=== PATIENT | female | born 1990 | race Caucasian/White ===

== ENCOUNTER 2017-01-25 03:34 | Inpatient (IN) | payer OTHER, SELFPAY ==
[2017-01-25 04:22] LABS: #Lymphocytes 2.4 thou/uL (1.20-3.40); #Monocytes 0.6 thou/uL (0.11-0.59); #Neutrophils 3.7 thou/uL (1.40-6.50); %Basophils 0.5 % (0.0-1.0); %Eosinophils 0.4 % (0.0-10.0); %Monocytes 8.5 % (0.0-10.0); Hematocrit 39.9 % (36.0-47.0); Mean Platelet Volume 7.3 fL (7.4-10.4); Red Blood Cell (RBC) Count 4.26 mill/uL (4.20-5.40); White Blood Cell (WBC) Count 6.8 thou/uL (4.8-10.8)
[2017-01-25 04:40] LABS: ALT (SGPT) 10 U/L (8-55); AST (SGOT) 17 U/L (5-34); Alkaline Phosphatase 44 U/L (40-150); Anion Gap 13 mmol/L (10-20); BUN (Urea Nitrogen) 20 mg/dL (7.0-18.7); Bilirubin, Total 0.7 mg/dL (0.2-1.2); Calc. Creatinine Clearance 0 mL/min (70-130); Calcium 9.5 mg/dL (7.8-10.44); Carbon Dioxide 26 mmol/L (22-29); Chloride 104 mmol/L (98-107); Estimated GFR-MDRD 74; Protein, Total 7.7 g/dL (6.0-8.3)
[2017-01-25 04:56] LABS: Acetaminophen Less than 6.0 mcg/mL (10.0-30.0); Magnesium 2.2 mg/dL (1.6-2.6); Phosphorus 3.6 mg/dL (2.3-4.7); Salicylate Less than 8.0 mg/dL (15.0-30.0)
[2017-01-25] MEDS ORDERED: Sodium Bicarbonate 150 MEQ in Dextrose 5% in Water 1,000 ML IV SCH ×4 (05:15→06:30)
[2017-01-25] MEDS ORDERED: Calcium Gluc 4.6 MEQ/10 ML (100 MG/ML) ONE (05:44)
[2017-01-25] MEDS ORDERED: Magnesium 2 GM/NS 0.9% 50 ML 2 GM in Premix Bag 1 BAG IVPB SCH (05:45)
[2017-01-25] MEDS ORDERED: Calcium Gluconate 13.8 MEQ in Sodium Chloride 0.9% 100 ML IVPB SCH (06:00)
--- NOTE | 2017-01-25 06:08 | ER ---
DATE OF SERVICE: 01/25/2017 Please refer to the patient's electronic medical record for further details of her visit. In summary, the patient presents after ingesting a significant amount of Seroquel intentionally. She was mildly tachycardic on arrival, with a normal QRS on her EKG, though with a mildly widened QTC. Poison Center was contacted and recommended observation in the ICU. Serial EKGs were performed, with widening of the QT interval noted. Because of this, a bicarbonate drip was initiated, and the patie nt was given calcium and magnesium as well. She admits to suicidal ideation and intent for self-harm . She denies any other method or attempt of self-harm, though she has attempted other methods in the past. She is in no respiratory distress. Charcoal was held given the concern for her somnolent sta te and the risk of aspiration and vomiting. She is in critical condition at time of admission.
--- NOTE | 2017-01-25 06:21 | PDOC.EVN ---
Event Note - Event Note Event Note: [id number] H&P Dictated 1. Drug overdose 2. sucide attempt 3. Hypokalemia PLAn; SEE ORDERS
[2017-01-25] MEDS ORDERED: Acetaminophen 325 MG TAB PO PRN (06:22)
[2017-01-25 06:30] LABS: Oxyhemoglobin 96.6 % (94.0-97.0); Sodium 141 mmol/L (135-148)
[2017-01-25 06:31] LABS: Mode RA; Modified Allen's Test POSITIVE; Vent NO
[2017-01-25] MEDS ORDERED: Potassium Chloride 40 MEQ in Sodium Chloride 0.9% 250 ML 250 ML IVPB SCH ×5 (07:00→21:00)
[2017-01-25 07:55] VITALS: BMI 18.8
[2017-01-25 08:21] LABS: Anion Gap 8 mmol/L (10-20); BUN (Urea Nitrogen) 17 mg/dL (7.0-18.7); Calc. Creatinine Clearance 82 mL/min (70-130); Calcium 9.4 mg/dL (7.8-10.44); Carbon Dioxide 29 mmol/L (22-29); Chloride 106 mmol/L (98-107); Estimated GFR-MDRD 82
[2017-01-25] MEDS: Heparin 5,000 UNITS/ML VIAL SC SCH ×3 (09:04→19:58)
--- NOTE | 2017-01-25 11:27 | HP ---
DATE OF ADMISSION: 01/25/2017 CHIEF COMPLAINT: Drug overdose. HISTORY OF PRESENT ILLNESS: The patient is a 26 years old female with a past medical history of depr ession, post-traumatic stress disorder, history of prior suicide attempt per records, Wilms' tumor, c hronic back pain and neck pain, now came to the ER, because of the drug overdose. The patient said s he took 200 mg of Seroquel or 15 tablets for suicide attempt. After taking the tablets patient told her boyfriend and patient was brought to the ER. The patient is currently lethargic, but denies any chest pain, denies any nausea, denies any vomiting. The patient is kept dozing off in the ER, so we will able to get minimal history. PAST MEDICAL HISTORY: As per HPI. PAST SURGICAL HISTORY: Status post kidney resection, secondary to Wilms' tumor. FAMILY HISTORY: Not able to obtain, as the patient is lethargic. SOCIAL HISTORY: No smoking, but denies any alcohol or drugs. Positive for cannabis use per history. MEDICATIONS: Reviewed. ALLERGIES: Reviewed. REVIEW OF SYSTEMS: Constitutional: Denies any fever. Denies any chills. Eyes: No vision problems . Neck: Denies any neck pain. Cardiovascular: Denies any chest pain. Respiratory System: Denies any cough. Denies sputum production. Gastrointestinal: Denies nausea, vomiting. Cranial Nervous System: Positive for lethargy. Psychiatric: Positive for depression. Other review of systems are r eviewed, patient kept saying yes or no. PHYSICAL EXAMINATION: CONSTITUTIONAL/VITAL SIGNS: At the time of H and P performed, blood pressure 109/60, heart rate 130s to 140s, pulse ox 98%. GENERAL: The patient appears lethargic. HEENT: Anterior nares patent. Nose normal. Teeth intact. Tongue is moist. NECK: Supple, no JVD. CARDIOVASCULAR SYSTEM: S1, S2 present, tachycardic. No murmurs, no rubs, no gallops. RESPIRATORY SYSTEM: No wheezing, no rhonchi. Breath sounds bilaterally. CRANIAL NERVE SYSTEM: Awake, lethargic, but arousable, follows commands. PSYCHIATRIC: Mood calm at this time. INTEGUMENTARY: No rashes seen. LABORATORY DATA: At the time of H and P performed sodium 140, potassium 3.2, chloride 104, CO2 of 26 , BUN of 20, creatinine 0.91. Toxicology positive for TCAs; toxicology negative for salicylates. Wh ite count 8.8, hemoglobin 13.6, platelet count 238. EKG: Positive for QT prolongation. ASSESSMENT AND PLAN: The patient is a 26 years old female, 1. Intentional drug overdose plus suicide attempt. ED physician did speak to the Poison Control. T he patient did not get charcoal in the ER, as the patient is lethargic and the risk of aspiration was high. So, patient did not get charcoal. We will go ahead and admit patient to the ICU, planned to give 1 gram of calcium gluconate due to prolonged QT interval. We will go ahead and start patient on some bicarbonate drip as recommended by the Poison Control. We will monitor the patient closely. 2. Tachycardia appears sinus, monitor closely. Check mag level. We will replace potassium. 3. History of depression and posttraumatic stress disorder. Planned to place 24-hour sitter. We wi ll consult Psych once we get the results. We will consult pulmonary critical care team also to evalu ate the patient. 4. Hypokalemia. Replace potassium. The case was discussed in detail with the patient and ED nurses.
[2017-01-25 13:01] LABS: Anion Gap 12 mmol/L (10-20); BUN (Urea Nitrogen) 15 mg/dL (7.0-18.7); Calc. Creatinine Clearance 83 mL/min (70-130); Calcium 8.9 mg/dL (7.8-10.44); Carbon Dioxide 27 mmol/L (22-29); Chloride 108 mmol/L (98-107); Estimated GFR-MDRD 84
[2017-01-25 15:27] LABS: Anion Gap 10 mmol/L (10-20); BUN (Urea Nitrogen) 13 mg/dL (7.0-18.7); Calc. Creatinine Clearance 84 mL/min (70-130); Calcium 8.7 mg/dL (7.8-10.44); Carbon Dioxide 27 mmol/L (22-29); Chloride 109 mmol/L (98-107); Estimated GFR-MDRD 85
--- NOTE | 2017-01-25 15:33 | CON ---
DATE OF CONSULTATION: 01/25/2017 REASON FOR CONSULTATION: Prolonged QT after recent overdose. HISTORY OF PRESENT ILLNESS: Ms. Perez is an unfortunate 26-year-old woman, who has had multiple john cide attempts in the past. She has been on Effexor, Topamax, and Seroquel. Her QT interval was prol onged. During my interview, she has been somnolent and difficult to arouse. PAST MEDICAL HISTORY: Posttraumatic stress disorder, depression, Wilms' tumor, chronic back pain. PAST SURGICAL HISTORY: Kidney resection. SOCIAL HISTORY: No current tobacco or alcohol use except for cannabis use. ALLERGIES: None. REVIEW OF SYSTEMS: Unobtainable. She is currently difficult to arouse. PHYSICAL EXAMINATION: GENERAL: Patient is a pleasant female who is in no acute distress. The patient appears her stated a ge. VITAL SIGNS: Blood pressure 107/66, pulse 99, temperature afebrile. NEUROLOGIC: The patient is alert and oriented times 3 with no focal neurologic deficits. HEENT: Sclerae without icterus. Mouth has moist mucous membranes with normal pallor. NECK: No JVD. Carotid upstroke brisk. No bruits bilaterally. LUNGS: Clear to auscultation with unlabored respirations. BACK: No scoliosis or kyphosis. CARDIAC: Regular rate and rhythm with normal S1 and S2. No S3 or S4 noted. No significant rubs, mu rmurs, thrills, or gallops noted throughout the precordium. PMI is not displaced. There is no laurie ternal heave. ABDOMEN: Soft, nontender, nondistended. No peritoneal signs present. No hepatosplenomegaly. No ab normal striae. EXTREMITIES: A 2+ femoral and 2+ dorsalis pedis pulses. No cyanosis, clubbing, or edema. SKIN: No gross abnormalities. PERTINENT LABORATORY DATA: Hemoglobin 13.6. Creatinine 0.82. EKG: Normal sinus rhythm with prolonged QT. IMPRESSION: 1. Prolonged QT. 2. Recent suicide attempt. RECOMMENDATIONS: Ms. Kenney prolonged QT is likely related to Seroquel. We will need to have watc h on the Seroquel for her QT to return to normal. We will continue to monitor for arrhythmias. We w ould recommend keeping her potassium above 3.5. Otherwise, I have no further recommendations.
--- NOTE | 2017-01-25 17:51 | PDOC.EVN ---
Event Note - Event Note Event Note: pt seen and evaluated agree with current plan spoke to dr fu and will f/u his rec's will d/c consult for now and reconsult prn
[2017-01-25 19:57] LABS: Anion Gap 10 mmol/L (10-20); BUN (Urea Nitrogen) 11 mg/dL (7.0-18.7); Calc. Creatinine Clearance 84 mL/min (70-130); Calcium 8.7 mg/dL (7.8-10.44); Carbon Dioxide 28 mmol/L (22-29); Chloride 108 mmol/L (98-107); Estimated GFR-MDRD 85
[2017-01-25] MEDS: Sodium Bicarbonate 150 MEQ in Dextrose 5% in Water 1,000 ML IV SCH ×2 (19:59)
[2017-01-25] MEDS ORDERED: FLU VACC QS2017-18 36 mo. & older 0.5 ML SYRINGE IM ONE (21:00)
--- NOTE | 2017-01-25 23:38 | CON ---
DATE OF CONSULTATION: 01/25/2017 HISTORY OF PRESENT ILLNESS: Ms. Perez is a 26-year-old female, she had issues with depression and s uicide attempts in the past. She presented with after she took a large dose of Seroquel and was admitted to the ICU, eliceo donato I was consulted because of the presence in the ICU. PAST MEDICAL HISTORY: Remarkable for history of Wilms tumor, depression and nephrectomy. SOCIAL HISTORY: She is nonsmoker, nondrinker. ALLERGIES: She has no drug allergies. REVIEW OF SYSTEMS: Not accurately obtainable. She is somnolent, but wakes up. She quickly goes ba ck to sleep. She is adequately protecting airway. PHYSICAL EXAMINATION: VITAL SIGNS: Blood pressure 106/64, heart rate 94, respiratory rate 18, oximetry is 99. NECK: Supple. LUNGS: Clear. HEART: Regular rhythm, no S3. ABDOMEN: Soft. EXTREMITIES: Without asymmetry. LABORATORY DATA: Drug screen is only salicylate, acetaminophen and alcohol screen. No other drugs w ere tested for, electrolytes were unremarkable. A pH 7.44, CO2 38, pO2 117 at 06:25 this morning, wh ite count 6.8, hemoglobin 13.6, platelets 238. 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 These are healed with fairly significant scars. IMPRESSION: Chronic depression with suicidal attempt versus gesture. Cardiology has been consulted for her EKG abnormalities, but I suspect as the medicine wears off, she will gradually improve. She has bicarb in her IV fluids. She appears to be adequately protecting her airway.
[2017-01-25 23:42] LABS: Anion Gap 10 mmol/L (10-20); BUN (Urea Nitrogen) 9 mg/dL (7.0-18.7); Calc. Creatinine Clearance 86 mL/min (70-130); Calcium 8.4 mg/dL (7.8-10.44); Carbon Dioxide 29 mmol/L (22-29); Chloride 109 mmol/L (98-107); Estimated GFR-MDRD 86
[2017-01-26] MEDS: Sodium Bicarbonate 150 MEQ in Dextrose 5% in Water 1,000 ML IV SCH ×2 (04:55)
[2017-01-26 06:10] LABS: Anion Gap 7 mmol/L (10-20); BUN (Urea Nitrogen) 6 mg/dL (7.0-18.7); Calc. Creatinine Clearance 84 mL/min (70-130); Calcium 8.4 mg/dL (7.8-10.44); Carbon Dioxide 31 mmol/L (22-29); Chloride 109 mmol/L (98-107); Estimated GFR-MDRD 85
[2017-01-26 08:19] LABS: Hematocrit 32.4 % (36.0-47.0); Mean Platelet Volume 7.3 fL (7.4-10.4); White Blood Cell (WBC) Count 4.9 thou/uL (4.8-10.8)
[2017-01-26 08:27] LABS: Neutrophil 46 % (42-75)
[2017-01-26] MEDS: Sodium Chloride 0.45% 1,000 ML IV SCH ×2 (08:50→23:20)
[2017-01-26] MEDS: Enoxaparin Sodium 40 MG/0.4 ML SYRINGE SC SCH (09:30)
--- NOTE | 2017-01-26 13:36 | PRG ---
DATE OF SERVICE: 01/26/2017 SUBJECTIVE: This patient is doing a little much better today. She is more alert. She is tolerating sips of water. We will start her on diet. No fever, no chills. QT interval has come back to sharyn l and does not complain of anything. She is a little drowsy, but answers simple questions appropriat lucia. PHYSICAL EXAMINATION: VITAL SIGNS: Temperature is afebrile, blood pressure is 97/58, breathing comfortably on room air wit h a pulse of 75. GENERAL: Patient is lying in bed in no apparent distress. HEENT: Atraumatic, normocephalic. Pupils equally round, react to light. Extraocular movements inta ct. Mucous membranes moist. NECK: Supple. No JVD. CHEST: Breath sounds heard. No rales or rhonchi. HEART: S1, S2 normal. No murmurs or gallops. ABDOMEN: Soft. EXTREMITIES: No cyanosis, clubbing or edema. Distal pulses present. NEUROLOGIC: Little lethargic. Details examination not possible. SKIN: No gross abnormalities. LABORATORY DATA: The patient's potassium was 3.2, sodium is 144, creatinine is 0.81. WBC count is 4 .9, hemoglobin is 10.9. ASSESSMENT AND PLAN: 1. Suicidal attempt with Seroquel, had initially prolonged QT interval, right now has come back to n ormal. We will follow cardiology plan. We will monitor the patient this hospital stay and do the ne ed for. We will get one-on-one sitter and we will follow the recommendations of Cardiology and inten sivist. 2. Hypokalemia. We will replace that. 3. Anemia. We will monitor that in this hospital stay. 4. History of depression and posttraumatic stress disorder. I will work with case management for po ssible inpatient psych evaluation by [facility]. 5. Tachycardia, has resolved. I will monitor the labs and work with [facility] in further taking care of the patient. The patient will be downgraded today. 6. Sequential compression devices for deep venous thrombosis prophylaxis. I will work with the [facility] in further caring for the patient.
--- NOTE | 2017-01-26 13:52 | PRG ---
DATE OF SERVICE: 01/26/2017 SUBJECTIVE: Ms. Perez continues to be somnolent, but is a little bit more awake today. No current complaints. Her QT appears to have narrowed to normal on the telemetry monitoring. OBJECTIVE: VITAL SIGNS: Blood pressure 111/72, pulse 75, temperature afebrile. LUNGS: Clear to auscultation. HEART: Regular rate and rhythm. ABDOMEN: Soft, nontender, nondistended. EXTREMITIES: No edema. LABORATORY DATA: Hemoglobin 10.9. Potassium 3.2. EKG pending. IMPRESSION: Prolonged QT after recent suicide attempt. RECOMMENDATIONS: Ms. Perez's QT interval appears within normal limits on a recent quality assurance monitor body ing. We will get an EKG to confirm. If confirmed, we will then sign off. Otherwise, I have no furt her recommendations.
--- NOTE | 2017-01-26 14:34 | PRG ---
DATE OF SERVICE: 01/26/2017 SUBJECTIVE: Ms. Perez awakens easily. She is in no distress. She declines to talk about the issues that led to her overdose. OBJECTIVE: VITAL SIGNS: Heart rate 76, QT interval is back to normal. Blood pressure is 110/64, respiratory rate is 13 and oximetry is 99. LUNGS: Clear. HEART: Regular rhythm. ABDOMEN: Soft. LABORATORY DATA: Bicarb is up to 31, potassium is 3.2. Electrolytes were otherwise normal. IMPRESSION: 1. Seroquel overdose. 1. Transient prolonged QT secondary to Seroquel. 2. Borderline hypokalemia. This can be replaced enterally though it i not really a clinical issue. 3. History of suicide attempts of another suicide attempt or gesture. She needs an [facility] evaluation. In my opinion, she is medically stable to move to a medical bed. Her bicarbonate should be discontinued. Half normal saline can be administered. She really does not have any reason to be on subQ heparin 3 times a day. One dose of Lovenox a day should be adequate. Critical care time 40 min. MTDD
[2017-01-26] MEDS: Potassium Chloride 20 MEQ TAB PO SCH (18:36)
[2017-01-27 04:55] LABS: Anion Gap 10 mmol/L (10-20); BUN (Urea Nitrogen) 6 mg/dL (7.0-18.7); BUN/Creatinine Ratio 7.89; Calc. Creatinine Clearance 90 mL/min (70-130); Calcium 8.6 mg/dL (7.8-10.44); Carbon Dioxide 26 mmol/L (22-29); Chloride 109 mmol/L (98-107); Estimated GFR-MDRD Greater than 90; Phosphorus 3.8 mg/dL (2.3-4.7)
[2017-01-27] MEDS: Enoxaparin Sodium 40 MG/0.4 ML SYRINGE SC SCH (10:19)
[2017-01-27] MEDS: Potassium Chloride 20 MEQ TAB PO SCH ×2 (10:19→16:00)
[2017-01-27] MEDS: Sodium Chloride 0.45% 1,000 ML IV SCH (10:36)
--- NOTE | 2017-01-27 13:04 | PDOC.PN ---
- Subjective Encounter Start Date: 01/27/17 Encounter Start Time: 09:30 Subjective: awake, no chest pain/palp/sob -: is eating better -: still feels depressed - Objective MAR Reviewed: Yes Vital Signs & Weight: Vital Signs (12 hours) Temp Pulse Resp BP Pulse Ox 01/27/17 12:07 97.7 F 75 18 111/72 100 01/27/17 08:33 98.4 F 79 18 110/67 99 01/27/17 08:00 98.8 F 74 16 01/27/17 04:00 98.8 F 74 16 98/57 L 100 Weight Admit Weight 113 lb 1.554 oz Weight 113 lb 1.554 oz Most Recent Monitor Data Heart Rate from ECG 95 NIBP 109/64 NIBP BP-Mean 78 Respiration from ECG 17 SpO2 98 I&O: 01/26/17 01/27/17 01/28/17 06:59 06:59 06:59 Intake Total 4049 3604 Output Total 2140 1435 Balance 1909 2169 Result Diagrams: 01/26/17 05:19 01/27/17 03:31 Phys Exam - Physical Examination HEENT: PERRLA, moist MMs Neck: no JVD, supple Respiratory: no wheezing, no rales Cardiovascular: RRR, no significant murmur Gastrointestinal: soft, non-tender, no distention, positive bowel sounds Musculoskeletal: no edema, pulses present Neurological: non-focal, moves all 4 limbs Psychiatric: A&O x 3 Dx/Plan (1) OD (overdose of drug) Code(s): T50.901A - POISONING BY UNSP DRUG/MEDS/BIOL SUBST, ACCIDENTAL, INIT Status: Acute (2) Anxiety and depression Code(s): F41.9 - ANXIETY DISORDER, UNSPECIFIED; F32.9 - MAJOR DEPRESSIVE DISORDER, SINGLE EPISODE, UNSPECIFIED Status: Chronic (3) Chronic pain Code(s): G89.29 - OTHER CHRONIC PAIN Status: Chronic - Plan pt says she has done this OD before as well -: is slowly stabilizing medically -: [facility] consultation in am, will likely need in psychiatric facility hosp -: continue 1:1 sitter until MR clears her in am * . Review of Systems - Medications/Allergies Allergies/Adverse Reactions: Allergies Allergy/AdvReac Type Severity Reaction Status Date / Time amoxicillin Allergy Verified 12/22/13 07:33 Penicillins Allergy Verified 12/22/13 07:02 Medications: Current Medications Acetaminophen (Tylenol) 650 mg PO Q4H PRN PRN Reason: Headache/Fever or Pain Enoxaparin Sodium (Lovenox) 40 mg SC 0900 [facility] Last Admin: 01/27/17 10:19 Dose: Not Given Sodium Chloride (1/2 Normal Saline) 1,000 mls @ 75 mls/hr IV .[id number] [facility] Last Admin: 01/27/17 10:36 Dose: 1,000 mls Potassium Chloride (K-Dur) 40 meq PO BID-[facility] Stop: 01/27/17 17:01 Last Admin: 01/27/17 10:19 Dose: 40 meq Sodium Chloride (Flush - Normal Saline) 10 ml IVF Q12HR [facility] Last Admin: 01/27/17 08:59 Dose: Not Given Sodium Chloride (Flush - Normal Saline) 10 ml IVF PRN PRN PRN Reason: Saline Flush
[2017-01-28 06:13] LABS: #Lymphocytes 1.8 thou/uL (1.20-3.40); #Monocytes 0.4 thou/uL (0.11-0.59); #Neutrophils 2.5 thou/uL (1.40-6.50); %Basophils 0.9 % (0.0-1.0); %Eosinophils 0.2 % (0.0-10.0); %Lymphocytes 38.4 % (21.0-51.0); %Monocytes 8.4 % (0.0-10.0); Hematocrit 39.1 % (36.0-47.0); Mean Platelet Volume 7.5 fL (7.4-10.4); Red Blood Cell (RBC) Count 4.08 mill/uL (4.20-5.40); White Blood Cell (WBC) Count 4.8 thou/uL (4.8-10.8)
[2017-01-28 06:27] LABS: ALT (SGPT) 16 U/L (8-55); AST (SGOT) 21 U/L (5-34); Alkaline Phosphatase 41 U/L (40-150); Anion Gap 8 mmol/L (10-20); BUN (Urea Nitrogen) 11 mg/dL (7.0-18.7); Bilirubin, Total 0.3 mg/dL (0.2-1.2); Calc. Creatinine Clearance 82 mL/min (70-130); Calcium 9.5 mg/dL (7.8-10.44); Carbon Dioxide 29 mmol/L (22-29); Chloride 106 mmol/L (98-107); Estimated GFR-MDRD 82; Globulin 2.7 g/dL (2.4-3.5); Protein, Total 6.9 g/dL (6.0-8.3)
[2017-01-28] MEDS: Enoxaparin Sodium 40 MG/0.4 ML SYRINGE SC SCH (07:37)
--- NOTE | 2017-01-28 11:44 | PDOC.PN ---
- Subjective Encounter Start Date: 01/28/17 Encounter Start Time: 07:00 Subjective: no chest pain or palp or sob -: feels better - Objective MAR Reviewed: Yes Vital Signs & Weight: Vital Signs (12 hours) Temp Pulse Resp BP Pulse Ox 01/28/17 08:36 98.0 F 91 20 112/68 100 01/28/17 07:32 98.6 F 73 18 Weight Admit Weight 113 lb 1.554 oz Weight 113 lb 1.554 oz Most Recent Monitor Data Heart Rate from ECG 95 NIBP 109/64 NIBP BP-Mean 78 Respiration from ECG 17 SpO2 98 I&O: 01/27/17 01/28/17 01/29/17 06:59 06:59 06:59 Intake Total 3604 480 Output Total 1435 Balance 2169 480 Result Diagrams: 01/28/17 05:44 01/28/17 05:44 Phys Exam - Physical Examination HEENT: PERRLA, moist MMs Neck: no JVD, supple Respiratory: no wheezing, no rales Cardiovascular: RRR, no significant murmur Gastrointestinal: soft, non-tender, positive bowel sounds Musculoskeletal: no edema, pulses present Neurological: non-focal, moves all 4 limbs Psychiatric: A&O x 3 Dx/Plan (1) OD (overdose of drug) Code(s): T50.901A - POISONING BY UNSP DRUG/MEDS/BIOL SUBST, ACCIDENTAL, INIT Status: Resolved (2) Anxiety and depression Code(s): F41.9 - ANXIETY DISORDER, UNSPECIFIED; F32.9 - MAJOR DEPRESSIVE DISORDER, SINGLE EPISODE, UNSPECIFIED Status: Chronic (3) Chronic pain Code(s): G89.29 - OTHER CHRONIC PAIN Status: Chronic - Plan is medically stable for discharge -: await [facility] eval -: likely will need inpt psych unit * . Review of Systems - Medications/Allergies Allergies/Adverse Reactions: Allergies Allergy/AdvReac Type Severity Reaction Status Date / Time amoxicillin Allergy Verified 12/22/13 07:33 Penicillins Allergy Verified 12/22/13 07:02 Medications: Current Medications Acetaminophen (Tylenol) 650 mg PO Q4H PRN PRN Reason: Headache/Fever or Pain Enoxaparin Sodium (Lovenox) 40 mg SC 0900 [facility] Last Admin: 01/28/17 07:37 Dose: Not Given Sodium Chloride (Flush - Normal Saline) 10 ml IVF Q12HR [facility] Last Admin: 01/28/17 07:37 Dose: Not Given Sodium Chloride (Flush - Normal Saline) 10 ml IVF PRN PRN PRN Reason: Saline Flush
[2017-01-29] MEDS: Enoxaparin Sodium 40 MG/0.4 ML SYRINGE SC SCH (08:27)
--- NOTE | 2017-01-29 10:51 | PDOC.PN ---
- Subjective Encounter Start Date: 01/29/17 Encounter Start Time: 07:15 Subjective: no palp or chest pain -: no new complaints, is eating and amb in room -: has 1:1 sitter at bedside - Objective MAR Reviewed: Yes Vital Signs & Weight: Vital Signs (12 hours) Temp Pulse Resp BP 01/29/17 08:00 98.0 F 72 16 116/75 Weight Admit Weight 113 lb 1.554 oz Weight 113 lb 1.554 oz Most Recent Monitor Data Heart Rate from ECG 95 NIBP 109/64 NIBP BP-Mean 78 Respiration from ECG 17 SpO2 98 I&O: 01/28/17 01/29/17 01/30/17 06:59 06:59 06:59 Intake Total 480 720 Balance 480 720 Result Diagrams: 01/28/17 05:44 01/28/17 05:44 Phys Exam - Physical Examination HEENT: PERRLA, moist MMs Neck: no JVD, supple Respiratory: no wheezing, no rales Cardiovascular: RRR, no significant murmur Gastrointestinal: soft, non-tender, positive bowel sounds Musculoskeletal: no edema, pulses present Neurological: non-focal, moves all 4 limbs Psychiatric: A&O x 3 Dx/Plan (1) OD (overdose of drug) Code(s): T50.901A - POISONING BY UNSP DRUG/MEDS/BIOL SUBST, ACCIDENTAL, INIT Status: Resolved (2) Anxiety and depression Code(s): F41.9 - ANXIETY DISORDER, UNSPECIFIED; F32.9 - MAJOR DEPRESSIVE DISORDER, SINGLE EPISODE, UNSPECIFIED Status: Chronic (3) Chronic pain Code(s): G89.29 - OTHER CHRONIC PAIN Status: Chronic - Plan will restart her home meds for depression -: awaiting inpt psychiatric hosp bed -: may dc anytime when placement is ready * . Review of Systems - Medications/Allergies Allergies/Adverse Reactions: Allergies Allergy/AdvReac Type Severity Reaction Status Date / Time amoxicillin Allergy Verified 12/22/13 07:33 Penicillins Allergy Verified 12/22/13 07:02 Medications: Current Medications Acetaminophen (Tylenol) 650 mg PO Q4H PRN PRN Reason: Headache/Fever or Pain Enoxaparin Sodium (Lovenox) 40 mg SC 0900 [facility] Last Admin: 01/29/17 08:27 Dose: 40 mg Sodium Chloride (Flush - Normal Saline) 10 ml IVF Q12HR [facility] Last Admin: 01/29/17 08:29 Dose: Not Given Sodium Chloride (Flush - Normal Saline) 10 ml IVF PRN PRN PRN Reason: Saline Flush
[2017-01-29] MEDS: Topiramate 25 MG TAB PO SCH (20:57)
[2017-01-30] MEDS: Enoxaparin Sodium 40 MG/0.4 ML SYRINGE SC SCH (08:21)
[2017-01-30] MEDS: Topiramate 25 MG TAB PO SCH ×2 (08:21→19:44)
[2017-01-30] MEDS: Venlafaxine HCl XR 150 MG CAP PO SCH (08:22)
[2017-01-30 08:29] LABS: Free T3 2.68 pg/mL (1.71-3.71)
--- NOTE | 2017-01-30 11:43 | PDOC.PN ---
- Subjective Encounter Start Date: 01/30/17 Encounter Start Time: 09:20 Subjective: feels better, eating well, amb in room - Objective MAR Reviewed: Yes Vital Signs & Weight: Vital Signs (12 hours) Temp Pulse Resp BP Pulse Ox 01/30/17 08:00 98.3 F 91 16 90/54 L 98 01/30/17 04:00 98.4 F 90 16 103/51 L 98 01/30/17 00:00 98.3 F 86 16 102/70 98 Weight Admit Weight 113 lb 1.554 oz Weight 113 lb 1.554 oz Most Recent Monitor Data Heart Rate from ECG 95 NIBP 109/64 NIBP BP-Mean 78 Respiration from ECG 17 SpO2 98 I&O: 01/29/17 01/30/17 01/31/17 06:59 06:59 06:59 Intake Total 720 Balance 720 Result Diagrams: 01/28/17 05:44 01/28/17 05:44 Phys Exam - Physical Examination HEENT: PERRLA, moist MMs Neck: no JVD, supple Respiratory: no wheezing, no rales Cardiovascular: RRR, no significant murmur Gastrointestinal: soft, non-tender, no distention, positive bowel sounds Musculoskeletal: no edema, pulses present Neurological: non-focal, moves all 4 limbs Psychiatric: A&O x 3 Dx/Plan (1) OD (overdose of drug) Code(s): T50.901A - POISONING BY UNSP DRUG/MEDS/BIOL SUBST, ACCIDENTAL, INIT Status: Resolved (2) Anxiety and depression Code(s): F41.9 - ANXIETY DISORDER, UNSPECIFIED; F32.9 - MAJOR DEPRESSIVE DISORDER, SINGLE EPISODE, UNSPECIFIED Status: Chronic (3) Chronic pain Code(s): G89.29 - OTHER CHRONIC PAIN Status: Chronic - Plan awaiting in psychiatric hospital bed -: thyroid function tests are normal -: may dc anytime when bed becomes available * . Review of Systems - Medications/Allergies Allergies/Adverse Reactions: Allergies Allergy/AdvReac Type Severity Reaction Status Date / Time amoxicillin Allergy Verified 12/22/13 07:33 Penicillins Allergy Verified 12/22/13 07:02 Medications: Current Medications Acetaminophen (Tylenol) 650 mg PO Q4H PRN PRN Reason: Headache/Fever or Pain Enoxaparin Sodium (Lovenox) 40 mg SC 0900 [facility] Last Admin: 01/30/17 08:21 Dose: 40 mg Sodium Chloride (Flush - Normal Saline) 10 ml IVF Q12HR [facility] Last Admin: 01/30/17 08:21 Dose: Not Given Sodium Chloride (Flush - Normal Saline) 10 ml IVF PRN PRN PRN Reason: Saline Flush Topiramate (Topamax) 25 mg PO BID [facility] Last Admin: 01/30/17 08:21 Dose: 25 mg Venlafaxine HCl (Effexor Xr) 150 mg PO DAILY [facility] Last Admin: 01/30/17 08:22 Dose: 150 mg
[2017-01-31] MEDS: Enoxaparin Sodium 40 MG/0.4 ML SYRINGE SC SCH (08:28)
[2017-01-31] MEDS: Topiramate 25 MG TAB PO SCH ×2 (08:28→20:24)
[2017-01-31] MEDS: Venlafaxine HCl XR 150 MG CAP PO SCH (08:28)
--- NOTE | 2017-01-31 12:42 | PDOC.PN ---
- Subjective Encounter Start Date: 01/31/17 Encounter Start Time: 09:15 Subjective: feels better, no chest pain or sob or palp -: is amb and eating better - Objective MAR Reviewed: Yes Vital Signs & Weight: Vital Signs (12 hours) Temp Pulse Resp BP Pulse Ox 01/31/17 08:00 98.2 F 64 16 97 01/31/17 07:56 98.2 F 64 16 121/74 97 01/31/17 06:45 98.8 F 68 16 114/61 96 Weight Admit Weight 113 lb 1.554 oz Weight 113 lb 1.554 oz Most Recent Monitor Data Heart Rate from ECG 95 NIBP 109/64 NIBP BP-Mean 78 Respiration from ECG 17 SpO2 98 Result Diagrams: 01/28/17 05:44 01/28/17 05:44 Phys Exam - Physical Examination HEENT: PERRLA, moist MMs Neck: no JVD, supple Respiratory: no wheezing, no rales Cardiovascular: RRR, no significant murmur Gastrointestinal: soft, non-tender, positive bowel sounds Musculoskeletal: no edema, pulses present Neurological: non-focal, moves all 4 limbs Psychiatric: A&O x 3 Dx/Plan (1) OD (overdose of drug) Code(s): T50.901A - POISONING BY UNSP DRUG/MEDS/BIOL SUBST, ACCIDENTAL, INIT Status: Resolved (2) Anxiety and depression Code(s): F41.9 - ANXIETY DISORDER, UNSPECIFIED; F32.9 - MAJOR DEPRESSIVE DISORDER, SINGLE EPISODE, UNSPECIFIED Status: Chronic (3) Chronic pain Code(s): G89.29 - OTHER CHRONIC PAIN Status: Chronic - Plan awaiting MR placement to in psychiatric unit -: hemostable -: may dc anytime placement is ready * . Review of Systems - Medications/Allergies Allergies/Adverse Reactions: Allergies Allergy/AdvReac Type Severity Reaction Status Date / Time amoxicillin Allergy Verified 12/22/13 07:33 Penicillins Allergy Verified 12/22/13 07:02 Medications: Current Medications Acetaminophen (Tylenol) 650 mg PO Q4H PRN PRN Reason: Headache/Fever or Pain Enoxaparin Sodium (Lovenox) 40 mg SC 0900 [facility] Last Admin: 01/31/17 08:28 Dose: 40 mg Sodium Chloride (Flush - Normal Saline) 10 ml IVF Q12HR [facility] Last Admin: 01/31/17 08:30 Dose: Not Given Sodium Chloride (Flush - Normal Saline) 10 ml IVF PRN PRN PRN Reason: Saline Flush Topiramate (Topamax) 25 mg PO BID [facility] Last Admin: 01/31/17 08:28 Dose: 25 mg Venlafaxine HCl (Effexor Xr) 150 mg PO DAILY [facility] Last Admin: 01/31/17 08:28 Dose: 150 mg
[2017-02-01] MEDS: Enoxaparin Sodium 40 MG/0.4 ML SYRINGE SC SCH (07:46)
[2017-02-01] MEDS: Venlafaxine HCl XR 150 MG CAP PO SCH (07:46)
[2017-02-01] MEDS: Topiramate 25 MG TAB PO SCH (07:46)
--- NOTE | 2017-02-01 15:35 | PDOC.PN ---
- Subjective Encounter Start Date: 02/01/17 Encounter Start Time: 15:33 Subjective: feels well. denies any SI/HI - Objective MAR Reviewed: Yes Vital Signs & Weight: Vital Signs (12 hours) Temp Pulse Resp BP Pulse Ox 02/01/17 08:00 98.4 F 68 16 100 02/01/17 07:37 98.4 F 68 16 121/80 100 Weight Admit Weight 113 lb 1.554 oz Weight 113 lb 1.554 oz Most Recent Monitor Data Heart Rate from ECG 95 NIBP 109/64 NIBP BP-Mean 78 Respiration from ECG 17 SpO2 98 I&O: 01/31/17 02/01/17 02/02/17 06:59 06:59 06:59 Intake Total 200 Balance 200 Result Diagrams: 01/28/17 05:44 01/28/17 05:44 Phys Exam - Physical Examination Constitutional: NAD HEENT: PERRLA, moist MMs, sclera anicteric, oral pharynx no lesions Neck: no nodes, no JVD, supple, full ROM Respiratory: no wheezing, no rales, no rhonchi, clear to auscultation bilateral Cardiovascular: RRR, no significant murmur Gastrointestinal: soft, non-tender, no distention, positive bowel sounds Musculoskeletal: no edema, pulses present Neurological: non-focal, normal sensation, moves all 4 limbs Psychiatric: normal affect, A&O x 3 Skin: no rash Dx/Plan (1) OD (overdose of drug) Code(s): T50.901A - POISONING BY UNSP DRUG/MEDS/BIOL SUBST, ACCIDENTAL, INIT Status: Resolved (2) Suicidal ideation Code(s): R45.851 - SUICIDAL IDEATIONS Status: Acute (3) Malnutrition Code(s): E46 - UNSPECIFIED PROTEIN-CALORIE MALNUTRITION Status: Chronic Qualifiers: Malnutrition type: protein-calorie malnutrition Protein-calorie malnutrition severity: severe Qualified Code(s): E43 - Unspecified severe protein-calorie malnutrition (4) Anxiety and depression Code(s): F41.9 - ANXIETY DISORDER, UNSPECIFIED; F32.9 - MAJOR DEPRESSIVE DISORDER, SINGLE EPISODE, UNSPECIFIED Status: Chronic - Plan [facility] re-eval.no availibilty at [place] so far.Pt medically stable -: will try for [facility] -: cont meds as below. -: stable * . Review of Systems - Review of Systems Constitutional: negative: Fever, Chills, Sweats, Weakness, Malaise, Other Respiratory: negative: Cough, Dry, Shortness of Breath, Hemoptysis, SOB with Excertion, Pleuritic Pain, Sputum, Wheezing Cardiovascular: negative: Chest Pain, Palpitations, Orthopnea, Paroxysmal Noc. Dyspnea, Edema, Light Headedness, Other Gastrointestinal: negative: Nausea, Vomiting, Abdominal Pain, Diarrhea, Constipation, Melena, Hematochezia, Other Genitourinary: negative: Dysuria, Frequency, Incontinence, Hematuria, Retention , Other Musculoskeletal: negative: Neck Pain, Shoulder Pain, Arm Pain, Back Pain, Hand Pain, Leg Pain, Foot Pain, Other Neurological: negative: Weakness, Numbness, Incoordination, Change in Speech, Confusion, Seizures, Other - Medications/Allergies Allergies/Adverse Reactions: Allergies Allergy/AdvReac Type Severity Reaction Status Date / Time amoxicillin Allergy Verified 12/22/13 07:33 Penicillins Allergy Verified 12/22/13 07:02 Medications: Current Medications Acetaminophen (Tylenol) 650 mg PO Q4H PRN PRN Reason: Headache/Fever or Pain Enoxaparin Sodium (Lovenox) 40 mg SC 0900 [facility] Last Admin: 02/01/17 07:46 Dose: 40 mg Sodium Chloride (Flush - Normal Saline) 10 ml IVF Q12HR [facility] Last Admin: 02/01/17 07:46 Dose: Not Given Sodium Chloride (Flush - Normal Saline) 10 ml IVF PRN PRN PRN Reason: Saline Flush Topiramate (Topamax) 25 mg PO BID [facility] Last Admin: 02/01/17 07:46 Dose: 25 mg Venlafaxine HCl (Effexor Xr) 150 mg PO DAILY [facility] Last Admin: 02/01/17 07:46 Dose: 150 mg
[2017-02-01 19:24] VITALS: BP 124/74; TEMP 98.2
--- NOTE | 2017-02-02 08:44 | DIS ---
DATE OF ADMISSION: 01/25/2017 DATE OF DISCHARGE: 02/01/2017 PRIMARY CARE PHYSICIAN: [facility]. CONDITION AT THE TIME OF DISCHARGE: Stable and improved. DISCHARGE DIAGNOSES: 1. Suicidal attempt by drug overdose. 2. Seroquel drug overdose due to suicidal ideation. 3. Severe protein calorie malnutrition. 4. Anxiety and depression. DISCHARGE DISPOSITION: [facility]. DISCHARGE MEDICATIONS: Clonazepam 0.5 mg p.o. b.i.d. p.r.n., Effexor 150 mg daily, Zofran 4 mg every 8 hours as needed, and Topamax 25 mg p.o. b.i.d. PROCEDURES IN THE HOSPITAL: None. CONSULTATIONS: 1. Cardiology. 2. Pulmonary and Critical Care Medicine. HOSPITAL COURSE: Ms. Perez is a 26-year-old female with past medical history of depression, post-tr aumatic stress disorder, multiple suicidal attempts, Wilms tumor, chronic back pain and neck pain who presented to the emergency room with drug overdose. She reported that she has taken 200 mg of Seroq uel about 15 tablets for suicide attempts. She was hemodynamically stable upon presentation except f or tachycardia with heart rate in 130s to 140s. She was admitted to medical floor for evaluation and management. Her toxicology was positive for TCAs. She did have prolonged QT on the EKG. The patie nt was admitted and Cardiology and Pulmonary Critical Care was consulted as she was initially admitte d to ICU. Please see admission history and physical for further details. The patient remained hemodynamically stable. She was seen by Cardiology, Dr. Mcfadden for prolonged QT interval after overdose. This was managed by close observation and eventually resolved. She was also seen by critical care physician, Dr. Lima who followed along. After she was stable, pranav carvajal was transferred to medical floor. She was treated with bicarbonate drip in the ICU. Eventually, the patient was stabilized and was medically cleared and [facility] was consulted. The patient was on QUINTIN's weight loss for quite a while. Because of unavailability of beds, reevaluation from [facility] was requested. At this time, they released the patient to [facility] . As she was medically cleared, she was discharged from the hospital. Please see hospitalist linsey muro note from the date of discharge for further details.
== END 2017-02-01 20:43 | DRG 917 ==
LOC: ERS 03:34 → CCU 06:22 → T4-A 01-26 16:42
PROVIDERS: ADMIT Internal Medicine; ATTEND Internal Medicine
DX: T43.592A Poisoning by other antipsychotics and neuroleptics, intentional self-harm, initial encounter (principal); E43 Unspecified severe protein-calorie malnutrition; Z68.1 Body mass index [BMI] 19.9 or less, adult; F32.9 Major depressive disorder, single episode, unspecified; Y92.019 Unspecified place in single-family (private) house as the place of occurrence of the external cause; F43.12 Post-traumatic stress disorder, chronic; Z91.5 Personal history of self-harm; E87.6 Hypokalemia; R00.0 Tachycardia, unspecified; G89.29 Other chronic pain; M54.9 Dorsalgia, unspecified; M54.2 Cervicalgia; Z90.5 Acquired absence of kidney; Z85.528 Personal history of other malignant neoplasm of kidney; F41.9 Anxiety disorder, unspecified
CPT/HCPCS: 36415; 80048; 80053; 80069; 80307; 82805; 83735; 84100; 84439; 84443; 84481; 85007; 85025; 85027; 93005; 93010; 96361; 96365; 96366; 96368; A4216; J1644; J1650; J3475; J3480; J7050; J7070

== ENCOUNTER 2018-06-19 09:02 | Emergency (ER) | payer SELFPAY ==
[2018-06-19 09:45] LABS: #Basophils 0.1 thou/uL (0.0-0.2); #Lymphocytes 3.5 thou/uL (1.20-3.40); #Monocytes 0.6 thou/uL (0.11-0.59); #Neutrophils 3.7 thou/uL (1.40-6.50); %Basophils 0.7 % (0.0-1.0); %Eosinophils 0.4 % (0.0-10.0); %Lymphocytes 44.3 % (21.0-51.0); %Monocytes 7.9 % (0.0-10.0); %Neutrophils 46.7 % (42.0-75.0); Hemoglobin 12.8 g/dL (12.0-16.0); Mean Corpuscular HGB CONC 33.8 g/dL (32.0-36.0); Mean Corpuscular Hemoglobin 30.9 pg (27.0-31.0); Mean Corpuscular Volume 91.4 fL (78.0-98.0); Mean Platelet Volume 7.8 fL (7.4-10.4); Platelet Count 258 thou/uL (130-400); RBC Distribution Width 11.1 % (11.5-14.5); Red Blood Cell (RBC) Count 4.16 mill/uL (4.20-5.40); White Blood Cell (WBC) Count 7.9 thou/uL (4.8-10.8)
[2018-06-19 10:09] LABS: ALT (SGPT) 26 U/L (8-55); AST (SGOT) 20 U/L (5-34); Alkaline Phosphatase 47 U/L (40-150); Anion Gap 11 mmol/L (10-20); BUN (Urea Nitrogen) 16 mg/dL (7.0-18.7); Bilirubin, Total 0.3 mg/dL (0.2-1.2); Calc. Creatinine Clearance 0 mL/min (70-130); Calcium 8.6 mg/dL (7.8-10.44); Carbon Dioxide 25 mmol/L (22-29); Chloride 107 mmol/L (98-107); Estimated GFR-MDRD 69; Globulin 2.5 g/dL (2.4-3.5); Glucose 111 mg/dL (70-105); Potassium 3.7 mmol/L (3.5-5.1); Protein, Total 6.5 g/dL (6.0-8.3); Sodium 139 mmol/L (136-145)
[2018-06-19 10:35] LABS: BHCG - Serum Negative (NEGATIVE); Pregs Control Background? CLEAR/WHITE (CLR/WHITE); Pregs Control Bar Appear? YES (CONTROL BAR)
== END 2018-06-19 11:47 | disposition home or self-care (01) ==
LOC: ERS 09:02
DX: R55 Syncope and collapse (principal); F41.9 Anxiety disorder, unspecified; F32.9 Major depressive disorder, single episode, unspecified; F43.10 Post-traumatic stress disorder, unspecified
CPT/HCPCS: 36415; 80053; 84703; 85025; 93005; 96360